=== PATIENT | male | born 1965 | race Caucasian/White ===

== ENCOUNTER 2022-11-30 08:36 | Outpatient (REF) | payer OTHER, SELFPAY ==
--- NOTE | ~2022-11-30 | XR_ITS ---
EXAMINATION: XR SHOULDER, RIGHT XR SHOULDER, LEFT CLINICAL INFORMATION: M25.519 - Pain in unspecified shoulder COMPARISON: MRI left shoulder 03/06/2007 TECHNIQUE: Each shoulder is imaged in 4 views. There are a total of 8 views. FINDINGS: Right: No fracture, dislocation, destructive process. Normal bony mineralization. There are osteoarthritic changes glenohumeral joint with joint narrowing and mild subchondral sclerosis. No visible articular chondrocalcinosis. Bulky osteophyte is present at the inferomedial humeral head. There is some laxity of the humeral head with humeral head seated between the mid and lower glenoid fossa. There is punctate calcific tendinosis in the superior rotator cuff. There are degenerative changes acromioclavicular joint. The acromioclavicular alignment is normal. Left: No fracture, dislocation, destructive process. Normal bony mineralization. There are prominent osteoarthritic changes glenohumeral joint with joint narrowing and mild subchondral sclerosis. Bulky osteophyte is present at the inferomedial humeral head. There are small geodes at the glenohumeral joint. No visible articular cartilage chondrocalcinosis. No definite rotator cuff calcifications. The acromioclavicular alignment is normal. There are degenerative changes acromioclavicular joint. XR/XR shoulder RT min 2V IMPRESSION: Right: -Osteoarthritis glenohumeral joint with borderline inferior subluxation. -Degenerative changes acromioclavicular joint. -Punctate calcific tendinosis in superior rotator cuff. -No visible chondrocalcinosis articular cartilage. Left: -Prominent osteoarthritis glenohumeral joint. No visible chondrocalcinosis articular cartilage. -Degenerative changes acromioclavicular joint.
--- NOTE | ~2022-11-30 | XR_ITS ---
EXAMINATION: XR SHOULDER, RIGHT XR SHOULDER, LEFT CLINICAL INFORMATION: M25.519 - Pain in unspecified shoulder COMPARISON: MRI left shoulder 03/06/2007 TECHNIQUE: Each shoulder is imaged in 4 views. There are a total of 8 views. FINDINGS: Right: No fracture, dislocation, destructive process. Normal bony mineralization. There are osteoarthritic changes glenohumeral joint with joint narrowing and mild subchondral sclerosis. No visible articular chondrocalcinosis. Bulky osteophyte is present at the inferomedial humeral head. There is some laxity of the humeral head with humeral head seated between the mid and lower glenoid fossa. There is punctate calcific tendinosis in the superior rotator cuff. There are degenerative changes acromioclavicular joint. The acromioclavicular alignment is normal. Left: No fracture, dislocation, destructive process. Normal bony mineralization. There are prominent osteoarthritic changes glenohumeral joint with joint narrowing and mild subchondral sclerosis. Bulky osteophyte is present at the inferomedial humeral head. There are small geodes at the glenohumeral joint. No visible articular cartilage chondrocalcinosis. No definite rotator cuff calcifications. The acromioclavicular alignment is normal. There are degenerative changes acromioclavicular joint. XR/XR shoulder LT min 2V IMPRESSION: Right: -Osteoarthritis glenohumeral joint with borderline inferior subluxation. -Degenerative changes acromioclavicular joint. -Punctate calcific tendinosis in superior rotator cuff. -No visible chondrocalcinosis articular cartilage. Left: -Prominent osteoarthritis glenohumeral joint. No visible chondrocalcinosis articular cartilage. -Degenerative changes acromioclavicular joint.
[2022-11-30 08:50] LABS: MANUAL DIFF FLAG NO
[2022-11-30 08:56] LABS: Basophils Percent Auto 0.8 % (0-2); Eosinophils Absolute Auto 0.4 X10*3/uL (0.0-0.4); Eosinophils Percent Auto 7.5 % (0-4); Hematocrit 44.2 % (42.0-52.0); Lymphocytes Absolute Auto 2.1 X10*3/uL (1.2-4.9); Lymphocytes Percent Auto 42.5 % (20-40); Mean Corpuscular HGB Conc 33.9 g/dl (31.0-36.0); Mean Corpuscular Hemoglobin 31.8 pg (27.0-33.0); Mean Corpuscular Volume 93.8 fL (80.0-98.0); Mean Platelet Volume 9.5 fL (9.4-12.4); Monocytes Absolute Auto 0.6 X10*3/uL (0.1-1.2); Monocytes Percent Auto 11.3 % (2-11); Neutrophils Absolute Auto 1.9 x10*3/uL (2.0-8.3); Neutrophils Percent Auto 37.9 % (45-73); Platelet Count 237 X10*3/uL (160-400); Red Blood Count 4.71 X10*6/uL (4.60-5.80); Red Cell Distribution Width 13.3 % (11.0-16.0)
[2022-11-30 09:29] LABS: Alanine Aminotransferase 21 U/L (0-40); Albumin Level 4.5 g/dL (3.5-5.0); Alkaline Phosphatase 57 U/L (39-117); Anion Gap 11 (12-20); Aspartate Amino Transferase 18 U/L (5-37); Blood Urea Nitrogen 16 mg/dL (9-16); Calcium 9.9 mg/dL (8.4-10.2); Carbon Dioxide 28 mmol/L (22-29); Chloride 106 mmol/L (96-108); Cholesterol 265 mg/dL; Estimated Glomerular Filt Rate > 60; Glucose Fasting 115 mg/dL (60-99); HDL Cholesterol 72 mg/dL; LDL Cholesterol Calculated 153 mg/dl; Potassium 4.5 mmol/L (3.3-5.1); Sodium 140 mmol/L (135-145); Total Protein 7.3 g/dL (6.5-8.0); Triglycerides 201 mg/dL
== END 2022-11-30 08:37 | disposition home or self-care (01) ==
LOC: HO.LAB 08:36
PROVIDERS: PCP Internal Medicine; Visit Provider Internal Medicine
DX: M25.512 Pain in left shoulder (principal); M25.511 Pain in right shoulder; N28.9 Disorder of kidney and ureter, unspecified; E78.5 Hyperlipidemia, unspecified; D64.9 Anemia, unspecified
CPT/HCPCS: 36415; 73030; 80053; 80061; 85025

== ENCOUNTER 2023-11-30 12:45 | Outpatient (AMB) | payer OTHER, SELFPAY ==
[2023-11-30 12:48] VITALS: BP 132/76; PULSE 87; O2SAT 97; BMI 34.0
--- NOTE | 2023-11-30 12:48 | MHC.PC.OV ---
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 by: Self / Same As Patient Allergies No Known Allergies Allergy (Verified 11/30/23 12:48) Tobacco use date assessed: 11/30/23 Dental Screening Dental Screen Date: 11/30/23 Did you have a dental visit in the last 12 months?: Yes Did you have a dental problem in the last 6 months where you did not have access to dental care?: No Was dental information given to patient?: Patient has dentist HPI Annual Exam HPI Details chronic left shoulder pain [facility] Social History Housing: House Patient Tobacco Use Status: Never used Tobacco e-Cigarette/Vaping Use: Never Used Second Hand Smoke Exposure: No service: No Current occupational status: retired Cognitive needs: No Hearing needs: No Vision needs: No Questionnaire PHQ-9 Over the last 2 weeks, how often have you been bothered by any of the following problems? 1. Little interest or pleasure in doing things: not at all 2. Feeling down, depressed, or hopeless: not at all 3. Trouble falling or staying asleep, or sleeping too much: not at all 4. Feeling tired or having little energy: not at all 5. Poor appetite or overeating: not at all 6. Feeling bad about yourself - or that you are a failure or have let yourself or your family down: not at all 7. Trouble concentrating on things, such as reading the newspaper or watching television: not at all 8. Moving or speaking so slowly that other people could have noticed. Or the opposite - being so fidgety or restless that you have been moving around a lot more than usual: not at all 9. Thoughts that you would be better off or of hurting yourself in some way: not at all Total score: 0 Depression Screening Interpretation: Negative Depression Screening Done: Yes 74363 - PHQ-9 Billing: Yes Source: Developed by Drs. Duncan Zapata, Marilou BMaurice Li and colleagues, with an educational taylor from [employer]. Thrive Questionnaire Date Thrive assessed: 11/30/23 I am a: Patient What is your living situation today?: I have a steady place to live Within the past 12 months, did the food you bought not last and you didn't have the money to get more?: Never true Within the past 12 months, did you worry whether your food would run out before you got money to buy more?: Never true Do you have trouble paying for medicines?: No Do you have trouble getting transportation to medical appointments?: No Do you have trouble paying your heating and electricity bill?: No Do you have trouble taking care of your child, family member or friend?: No Do you have trouble with day-to-day activities such as bathing, preparing meals, shopping, managing finances, etc.?: No Are you currently unemployed and looking for a job?: No Are you interested in more education?: No Please select the resources that you would like help with: None Currently or been in a relationship where the following occur: no concerns reported AUDIT C Alcohol Use Questionnaire (AUDIT-C) 1. How often do you have a drink containing alcohol?: 2-3 times a week 2. How many drinks containing alcohol do you have on a typical day when you are drinking?: 5 or 6 3. How often do you have six or more drinks on one occasion?: Weekly Total Score: 8 SHAI-7 AMB Questionnaire SHAI-7 Date SHAI - 7 assessed: 11/30/23 Feeling nervous, anxious, or on edge: 0 = Not at all Not being able to stop or control worryin = Not at all Worrying too much about different things: 0 = Not at all Trouble relaxin = Not at all Being so restless that it is hard to sit still: 0 = Not at all Becoming easily annoyed or irritable: 0 = Not at all Feeling afraid as if something awful might happen: 0 = Not at all Total SHAI-7 score (0-4 normal; 5-9 mild; 10-14 moderate; 15-21 severe): 0 Source: Developed by Drs. Duncan Zapata, Maurice Gallegos and colleagues, with an educational taylor from [employer]. SHAI-7 Assessment Billing SHAI-7 Assessment Tool: SHAI-7 Assessment 56259 Review of Systems Const Denies chills, Denies fatigue, Denies headache(s) and Denies weight loss Eyes Denies change in vision, Denies diplopia and Denies eye pain ENT Denies vertigo, Denies dizziness, Denies headache(s) and Denies nasal discharge Card Denies chest pain, Denies rapid heart rate and Denies dyspnea on exertion Resp Denies chest congestion, Denies cough, Denies pain with cough and Denies dyspnea on exertion GI Denies abdominal pain, Denies hematochezia and Denies change in bowel habits Musc Denies myalgias, Denies arthralgias and Denies joint swelling Skin/Breast Denies lesions and Denies unusual bruising Neuro Denies vertigo, Denies dizziness, Denies headache(s) and Denies focal weakness Endo Denies fatigue Physical exam (Primary Care) Vital Signs: Last Vital Signs Pulse 87 11/30/23 12:48 BP 132/76 11/30/23 12:48 Pulse Ox 97 11/30/23 12:48 Oxygen Delivery Method Room Air 11/30/23 12:48 BMI result Body Mass Index 34.0 Tobacco/Smoking Status: Tobacco use Status Tobacco use date assessed 11/30/23 11/30/23 12:49 Patient Tobacco Use Status Never used Tobacco 11/30/23 12:49 e-Cigarette/Vaping Use Never Used 11/30/23 12:49 PHQ-9: PHQ-9 Score PHQ-9: Total score 0 11/30/23 12:49 Depression Screening Interpretation: Negative Thrive Assessment: Date of Thrive Assessment Date Thrive assessed 11/30/23 11/30/23 12:49 Currently or been in a relationship where the following occur: no concerns reported Const General: cooperative, healthy appearing and no acute distress Orientation/consciousness: oriented to person, oriented to place and oriented to time HENMT Head: Yes normal to inspection, Yes normocephalic and Yes atraumatic Mouth: Normal oral and palatal mucosa present and tongue normal Throat: Yes posterior oropharynx normal and Yes uvula midline Eyes General: appearance normal, both eyes and all related structures Neck Neck: Yes normal visual inspection, Yes full ROM and Yes no lymphadenopathy Thyroid: Thyroid normal Carotids: normal carotid upstroke Chest Chest palpation & inspection: normal inspection of the chest Resp Effort & Inspection: normal respiratory effort and able to speak in complete sentences Auscultation: clear to auscultation bilaterally Cardio Jugular venous distension: no JVD Palpation: normal PMI Rate: regular rate Rhythm: regular rhythm Heart sounds: S1 normal heart sound present and S2 normal heart sound present GI Inspection: Yes normal to inspection Palpation (GI): Soft to palpation and No hepatosplenomegaly present Auscultation: normal bowel sounds General: Yes no CVA tenderness Back/Spine/Pelvis Back: no CVA tenderness Skin General skin exam: no rashes or lesions noted Neuro General: oriented to person, oriented to place and oriented to time Extrem General: Yes normal to inspection and Yes full ROM Assessment and Plan Assessment & Plan (1) Physical exam: Code(s): Z00.00 - Encounter for general adult medical examination without abnormal findings Plan: labs (2) Shoulder pain: Code(s): M25.519 - Pain in unspecified shoulder Plan: ortho referral Orders: Orders Thyroid Stimulating Hormone Today E03.9 - Hypothyroidism, unspecified Comprehensive [place]. Panel Fast Today N28.9 - Disorder of kidney and ureter, unspecified Lipid Panel Today E78.5 - Hyperlipidemia, unspecified Complete Blood Count Auto Diff Today D64.9 - Anemia, unspecified Referrals Orthopedics Referral M25.519 - Pain in unspecified shoulder Coding Level of Care Code Est Pt Prev Care 40-64y(83664) Diagnoses Physical exam Z00.00 Shoulder pain M25.519 Additional Codes SHAI-7 Assessment Billing - SHAI-7 Assessment Tool: SHAI-7 Assessment 54099 ([id number])
== END 2023-11-30 13:14 | disposition home or self-care (01) ==
PROVIDERS: Visit Provider Internal Medicine
DX: Z00.00 Encounter for general adult medical examination without abnormal findings (principal); M25.519 Pain in unspecified shoulder
CPT/HCPCS: 99396

== ENCOUNTER 2023-12-12 14:57 | Outpatient (AMB) | payer OTHER, SELFPAY ==
[2023-12-12 14:58] VITALS: BMI 34.0
--- NOTE | 2023-12-12 14:58 | A.OFFVIS_ITS ---
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 The patient describes his pain as sharp in nature. His pain and weakness have gotten worse over the last few years in spite of continued non operative treatments. He has had difficulty lifting his left hand above shoulder height. He has done physical therapy exercises which aggravated his pain. Has also tried Tylenol and anti-inflammatory medicines which gave him minimal relief. Allergies No Known Allergies Allergy (Verified 12/12/23 15:03) Medication List - Last Reconciled 12/12/23 by Jun Mata MD No Known Home Meds [facility] Social History Housing: House Patient Tobacco Use Status: Never used Tobacco e-Cigarette/Vaping Use: Never Used Second Hand Smoke Exposure: No service: No Current occupational status: retired Cognitive needs: No Hearing needs: No Vision needs: No Physical Exam Vital Signs: BMI result Body Mass Index 34.0 Const Other: Well-nourished well-developed very friendly male awake alert and oriented x3 in no acute distress Extrem Other: Bilateral upper extremity examination shows good capillary refill, no skin lesions noted, normal sensation light touch Left shoulder examination shows decreased range of motion when compared to his right shoulder, 4+ out of 5 strength with supraspinatus testing, positive impingement signs, tenderness over his acromioclavicular joint, no instability Results Reviewed Results Reviewed: X-rays of the patient's left shoulder show severe acromioclavicular joint narrowing, moderate glenohumeral joint degenerative changes, a type 2 acromion, no acute bony abnormalities Assessment & Plan Assessment & Plan (1) Left shoulder pain: Code(s): M25.512 - Pain in left shoulder Plan Mr. Patel presents with progressively worsening left shoulder pain and weakness due to impingement syndrome, acromioclavicular joint arthritis and possible full-thickness rotator cuff tearing. Thus, I will send the patient for an MRI of his left shoulder for further evaluation of his rotator cuff tendons. I will see him back once the MRI is completed to discuss the findings and treatment options. Feel free to call me at any time should questions regarding his orthopedic management arise. Thank you very much for asking me to see this very friendly gentleman. I spent 22 minutes in reviewing the patient's records and imaging studies, seeing the patient and documenting in the medical record. Orders: Orders MR shoulder LT wo con 12/12/23 M25.512 - Pain in left shoulder Coding Level of Care Code New Pt Level 2 (85801) Diagnoses Left shoulder pain M25.512
== END 2023-12-12 15:19 | disposition home or self-care (01) ==
PROVIDERS: PCP Internal Medicine; Visit Provider Orthopaedic Surgery
DX: M25.512 Pain in left shoulder (principal)
CPT/HCPCS: 99202

== ENCOUNTER → 2023-12-12 14:57 | Outpatient (BNVA) | payer OTHER, SELFPAY | PROVIDERS: PCP Internal Medicine; Visit Provider Orthopaedic Surgery ==

== ENCOUNTER 2023-12-27 13:54 | Outpatient (AMB) | payer OTHER, SELFPAY ==
--- NOTE | 2023-12-27 14:01 | A.OFFVIS_ITS ---
Intake Vital Signs 12/27/23 14:09 Height 5 ft 9 in Weight 233 lb BMI 34.4 BP 149/83 H Blood Pressure Location Rt brachial Position Sitting Pulse 68 Intake Visit Reasons: Hemorrhoids Intake Note: This patient presents for an assessment for hemorrhoids. Patient c/o; reports no rectal pain, reports no rectal bleeding, reports no constipation, occasional straining with bowel movements, reports had a colonoscopy 7 years ago. 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 He had a colonoscopy 7 years ago. At that time, he was told that he had large hemorrhoids and was referred to be. However, he said that he forgot all about it. He says he knows he has hemorrhoids but denies any problems with it. He says that he is hemorrhoids do not bother him at all. He denies any pain, swelling or bleeding. [facility] Medical History Internal and external hemorrhoids without complication Family History Other Cancer Social History Housing: House Patient Tobacco Use Status: Never used Tobacco e-Cigarette/Vaping Use: Never Used Second Hand Smoke Exposure: No service: No Current occupational status: retired Cognitive needs: No Hearing needs: No Vision needs: No Review of Systems Const Denies chills and Denies fever(s) Card Denies chest pain, Denies dyspnea and Denies dyspnea on exertion Resp Denies cough, Denies dyspnea and Denies dyspnea on exertion GI Denies hematochezia and Denies change in bowel habits Denies hematuria and Denies difficulty urinating Musc Denies back pain and Denies limited range of motion Neuro Denies focal weakness and Denies convulsions Psych Denies depression and Denies mood swings Physical Exam Vital Signs: Last Vital Signs Pulse 68 12/27/23 14:09 BP 149/83 H 12/27/23 14:09 BMI result Body Mass Index 34.4 Const General: comfortable and no acute distress Orientation/consciousness: patient oriented x3 Neck Neck: Yes no lymphadenopathy Resp Auscultation: clear to auscultation bilaterally Cardio Rhythm: regular rhythm GI Other: Large hemorrhoids, external, seen on the left and the right side Palpation (GI): Soft to palpation, nontender and no guarding Neuro General: patient oriented x3 Office Procedures Anoscopy He was in vianney-knife position. The anoscope was gently inserted. A full examination of the anal canal was done. He did have bulky internal and external hemorrhoidal columns on the left and the right side. There were no other lesions. There was no fissure. There was no induration on digital exam. There was no blood. [id number] Assessment & Plan Assessment & Plan (1) Internal and external hemorrhoids without complication: Code(s): K64.4 - Residual hemorrhoidal skin tags; K64.8 - Other hemorrhoids Plan: Examination including anoscopy reveals large hemorrhoidal columns, internal external on the left and right side. He otherwise says that these do not bother him at all. He denies any pain, swelling or bleeding. He says that he does not want any surgical intervention for these at this time. He denies being constipated I did tell him that if he develops symptoms and he wants to be re-evaluated, he can follow-up in the office down the line. Coding Level of Care Code New Pt Level 3 (77464) Diagnoses Internal and external hemorrhoids without complication K64.4; K64.8 CPT Codes Details - CPT: 39692-[id number] ([id number])
[2023-12-27 14:09] VITALS: BP 149/83; PULSE 68; BMI 34.4
== END 2023-12-27 14:23 | disposition home or self-care (01) ==
PROVIDERS: PCP Internal Medicine; Visit Provider Surgery
DX: K64.4 Residual hemorrhoidal skin tags (principal); K64.8 Other hemorrhoids
CPT/HCPCS: 46600; 99203

== ENCOUNTER → 2023-12-27 13:54 | Outpatient (BNVA) | payer OTHER, SELFPAY | PROVIDERS: PCP Internal Medicine; Visit Provider Surgery | DX: K64.4 Residual hemorrhoidal skin tags (principal); K64.8 Other hemorrhoids | CPT/HCPCS: 46600 ==

== ENCOUNTER 2023-12-28 19:57 | Outpatient (REF) | payer OTHER, SELFPAY ==
--- NOTE | ~2023-12-28 | MR_ITS ---
EXAMINATION: MR SHOULDER WITHOUT CONTRAST, LEFT CLINICAL INFORMATION: Shoulder pain. COMPARISON: None available. TECHNIQUE: MRI of the left shoulder without contrast was performed on a high-field scanner. FINDINGS: ROTATOR CUFF: Moderate supraspinatus tendinosis, with bursal surface fraying/thinning in the distal anterior/middle fibers. No full-thickness tear is seen. Infraspinatus, teres minor is intact. Mild subscapularis tendinosis, with thinning/partial tearing of the distal tendon measuring approximately 1.7 cm ML. No muscle atrophy or fatty infiltration. BICEPS: Mild-moderate tendinosis of the proximal intra-articular biceps tendon. CORACOACROMIAL ARCH: The undersurface of the acromion is mildly curved with no subacromial spur. Moderate acromioclavicular arthritis. Mild subacromial-subdeltoid bursitis. LABRUM/CAPSULE: Diffuse labral degenerative tearing, with abnormal signal, ill-definition, irregularity. Severe glenohumeral joint arthritis, GLENOHUMERAL JOINT/MARROW: Severe glenohumeral joint arthritis, characterized by marked joint space loss, large osteophytes, extensive full-thickness cartilage loss, subchondral cysts and edema, bony remodeling. Small effusion with synovitis, debris/loose bodies. MR/MR shoulder LT wo con IMPRESSION: 1. Moderate supraspinatus tendinosis, with bursal surface fraying/tearing in the distal anterior/middle fibers. 2. Mild subscapularis tendinosis with thinning/partial tearing distally. 3. Mild-moderate proximal biceps tendinosis. 4. Diffuse labral degenerative tearing. 5. Severe glenohumeral joint arthritis. Small effusion with synovitis, debris/loose bodies. 6. Moderate acromioclavicular arthritis. Mild subacromial-subdeltoid bursitis.
== END 2023-12-28 19:58 | disposition home or self-care (01) ==
LOC: HO.MRI 19:57
PROVIDERS: PCP Internal Medicine; Visit Provider Orthopaedic Surgery
DX: M25.512 Pain in left shoulder (principal)
CPT/HCPCS: 73221

== ENCOUNTER 2024-01-16 08:38 | Outpatient (AMB) | payer OTHER, SELFPAY ==
[2024-01-16 08:40] VITALS: BMI 34.4
--- NOTE | 2024-01-16 08:40 | MHC.OFFVIS ---
Intake Vital Signs 01/16/24 08:40 Height 5 ft 9 in Weight 233 lb BMI 34.4 Intake Visit Reasons: ov- MRI Shoulder LT review Intake Note: Jose G is a 58 year old male who presents for a MRI review of his Left shoulder. Patient reports his shoulder is feeling better then usual. He still having trouble sleeping due to the discomfort. He also doing some shoulder exercises that he found on line, that seem to be helping. He denies any weakness in his shoulder. He continues to exercise as much as possible. Allergies No Known Allergies Allergy (Verified 01/16/24 08:43) Medication List - Last Reconciled 01/17/24 by Jun Mata MD No Known Home Meds [facility] Medical History Internal and external hemorrhoids without complication Family History Other Cancer Social History Housing: House Patient Tobacco Use Status: Never used Tobacco e-Cigarette/Vaping Use: Never Used Second Hand Smoke Exposure: No service: No Current occupational status: retired Cognitive needs: No Hearing needs: No Vision needs: No Physical Exam Vital Signs: BMI result Body Mass Index 34.4 Const Other: Well-nourished well-developed very friendly male awake alert and oriented x3 in no acute distress Extrem Other: Bilateral upper extremity examination shows good capillary refill, no skin lesions noted, normal sensation light touch Left shoulder examination shows slightly decreased range of motion when compared to his right shoulder, mild crepitus with range of motion, 5/5 strength with supraspinatus testing, positive impingement signs, tenderness over his acromioclavicular joint Results Reviewed Results Reviewed: MRI of the patient's left shoulder show severe acromioclavicular joint narrowing, a type 2 acromion, moderate glenohumeral joint degenerative changes, no acute bony abnormalities Assessment & Plan Assessment & Plan (1) Left shoulder pain: Code(s): M25.512 - Pain in left shoulder Plan Mr. Patel presents with left shoulder pain and stiffness due to impingement syndrome, acromioclavicular joint arthritis, glenohumeral joint arthritis and adhesive capsulitis. I had a lengthy discussion with the patient regarding the treatment options. At this point the patient's symptoms are tolerable to him. Will continue with his exercise program. Will follow up with me on an as-needed basis should his symptoms worsen in any way. Feel free to call me at any time should questions regarding his orthopedic management arise. I spent 22 minutes in reviewing the patient's records and imaging studies, seeing the patient and documenting in the medical record. Coding Level of Care Code Est Pt Level 2 (61053) Diagnoses Left shoulder pain M25.512
== END 2024-01-16 09:10 | disposition home or self-care (01) ==
PROVIDERS: PCP Internal Medicine; Visit Provider Orthopaedic Surgery
DX: M75.42 Impingement syndrome of left shoulder (principal); M25.512 Pain in left shoulder; M19.011 Primary osteoarthritis, right shoulder
CPT/HCPCS: 99213

== ENCOUNTER → 2024-01-16 08:38 | Outpatient (BNVA) | payer OTHER, SELFPAY | PROVIDERS: PCP Internal Medicine; Visit Provider Orthopaedic Surgery ==

== ENCOUNTER 2024-12-12 12:56 | Outpatient (AMB) | payer BC, SELFPAY ==
--- NOTE | 2024-12-12 13:00 | MHC.PC.OV ---
Vital Signs 12/12/24 13:05 Height 5 ft 9 in Weight 238 lb 6 oz BMI 35.2 BP 130/74 Blood Pressure Location Lt brachial Position Sitting Pulse 60 Pulse Source Pulse Oximeter Temp 96.6 F L Temp Source Skin Pulse Oximetry (%) 96 Oxygen Delivery Method Room Air Intake Visit Reasons: PE Intake Note: Patient is here today for a physical. Pt decline flu shot today Band Edger Required: No Kiln Stoker: Not Required per policy Accompanied by: Self / Same As Patient Allergies No Known Allergies Allergy (Verified 12/12/24 13:04) Medication List - Last Reconciled 12/12/24 by Derrick Bansal MD valacyclovir 1,000 mg PO BID Tobacco use date assessed: 12/12/24 Dental Screening Dental Screen Date: 12/12/24 Did you have a dental visit in the last 12 months?: Yes Did you have a dental problem in the last 6 months where you did not have access to dental care?: No Was dental information given to patient?: Patient has dentist HPI PE HPI Details DANG on CPAP; doing well PFSH Medical History (Updated 12/12/24 @ 13:29 by Derrick Bansal MD) Internal and external hemorrhoids without complication Surgical History (Updated 12/12/24 @ 13:07 by DIANA Granados) No pertinent past surgical history Family History (Updated 12/12/24 @ 13:00 by DIANA Granados) Other Cancer Social History Housing: House Patient Tobacco Use Status: Never used Tobacco e-Cigarette/Vaping Use: Never Used Second Hand Smoke Exposure: No service: No Current occupational status: retired Cognitive needs: No Hearing needs: No Vision needs: No Questionnaire PHQ-9 Over the last 2 weeks, how often have you been bothered by any of the following problems? 1. Little interest or pleasure in doing things: not at all 2. Feeling down, depressed, or hopeless: not at all 3. Trouble falling or staying asleep, or sleeping too much: not at all 4. Feeling tired or having little energy: not at all 5. Poor appetite or overeating: not at all 6. Feeling bad about yourself - or that you are a failure or have let yourself or your family down: not at all 7. Trouble concentrating on things, such as reading the newspaper or watching television: not at all 8. Moving or speaking so slowly that other people could have noticed. Or the opposite - being so fidgety or restless that you have been moving around a lot more than usual: not at all 9. Thoughts that you would be better off or of hurting yourself in some way: not at all Total score: 0 Depression Screening Interpretation: Negative Depression Screening Done: Yes Source: Developed by Drs. Duncan Zapata, Marilou Meza, Maurice Laboy and colleagues, with an educational taylor from [employer]. Thrive Questionnaire Date Thrive assessed: 12/11/24 I am a: Patient What is your living situation today?: I have a steady place to live Within the past 12 months, did the food you bought not last and you didn't have the money to get more?: Never true Within the past 12 months, did you worry whether your food would run out before you got money to buy more?: Never true Do you have trouble paying for medicines?: No Do you have trouble getting transportation to medical appointments?: No Do you have trouble paying your heating and electricity bill?: No Do you have trouble taking care of your child, family member or friend?: No Do you have trouble with day-to-day activities such as bathing, preparing meals, shopping, managing finances, etc.?: No Are you currently unemployed and looking for a job?: No Are you interested in more education?: No Please select the resources that you would like help with: None Currently or been in a relationship where the following occur: No concerns reported THRIVE Score: 0 AUDIT C Alcohol Use Questionnaire (AUDIT-C) 1. How often do you have a drink containing alcohol?: 2-4 times a month 2. How many drinks containing alcohol do you have on a typical day when you are drinking?: 5 or 6 3. How often do you have six or more drinks on one occasion?: Weekly Total Score: 7 SHAI-7 AMB Questionnaire SHAI-7 Date SHAI - 7 assessed: 12/12/24 Feeling nervous, anxious, or on edge: 0 = Not at all Not being able to stop or control worryin = Not at all Worrying too much about different things: 0 = Not at all Trouble relaxin = Not at all Being so restless that it is hard to sit still: 0 = Not at all Becoming easily annoyed or irritable: 0 = Not at all Feeling afraid as if something awful might happen: 0 = Not at all Total SHAI-7 score (0-4 normal; 5-9 mild; 10-14 moderate; 15-21 severe): 0 Source: Developed by Drs. Duncan Zapata, Marilou Meza, Maurice Laboy and colleagues, with an educational taylor from [employer]. Review of Systems Const Denies chills, Denies fatigue, Denies headache(s) and Denies weight loss Eyes Denies change in vision, Denies diplopia and Denies eye pain ENT Denies vertigo, Denies dizziness, Denies headache(s) and Denies nasal discharge Card Denies chest pain, Denies rapid heart rate and Denies dyspnea on exertion Resp Denies chest congestion, Denies cough, Denies pain with cough and Denies dyspnea on exertion GI Denies abdominal pain, Denies hematochezia and Denies change in bowel habits Musc Denies myalgias, Denies arthralgias and Denies joint swelling Skin/Breast Denies lesions and Denies unusual bruising Neuro Denies vertigo, Denies dizziness, Denies headache(s) and Denies focal weakness Endo Denies fatigue Physical exam (Primary Care) Vital Signs: Last Vital Signs Temp 96.6 F L 12/12/24 13:05 Pulse 60 12/12/24 13:05 BP 130/74 12/12/24 13:05 Pulse Ox 96 12/12/24 13:05 Oxygen Delivery Method Room Air 12/12/24 13:05 BMI result Body Mass Index 35.2 Tobacco/Smoking Status: Tobacco use Status Tobacco use date assessed 12/12/24 12/12/24 13:06 Patient Tobacco Use Status Never used Tobacco 12/12/24 13:01 e-Cigarette/Vaping Use Never Used 12/12/24 13:01 PHQ-9: PHQ-9 Score PHQ-9: Total score 0 12/12/24 13:01 Depression Screening Interpretation: Negative Thrive Assessment: Date of Thrive Assessment Date Thrive assessed 12/11/24 12/12/24 13:01 Currently or been in a relationship where the following occur: No concerns reported Const General: cooperative, healthy appearing and no acute distress Orientation/consciousness: oriented to person, oriented to place and oriented to time HENMT Head: Yes normal to inspection, Yes normocephalic and Yes atraumatic Mouth: Normal oral and palatal mucosa present and tongue normal Throat: Yes posterior oropharynx normal and Yes uvula midline Eyes General: appearance normal, both eyes and all related structures Neck Neck: Yes normal visual inspection, Yes full ROM and Yes no lymphadenopathy Thyroid: Thyroid normal Carotids: normal carotid upstroke Chest Chest palpation & inspection: normal inspection of the chest Resp Effort & Inspection: normal respiratory effort and able to speak in complete sentences Auscultation: clear to auscultation bilaterally Cardio Jugular venous distension: no JVD Palpation: normal PMI Rate: regular rate Rhythm: regular rhythm Heart sounds: S1 normal heart sound present and S2 normal heart sound present GI Inspection: Yes normal to inspection Palpation (GI): Soft to palpation and No hepatosplenomegaly present Auscultation: normal bowel sounds General: Yes no CVA tenderness Back/Spine/Pelvis Back: no CVA tenderness Skin General skin exam: no rashes or lesions noted Neuro General: oriented to person, oriented to place and oriented to time Extrem General: Yes normal to inspection and Yes full ROM Coding Level of Care Code Est Pt Prev Care 40-64y(71772) Diagnoses Physical exam Z00.00 Obstructive sleep apnea G47.33 Assessment & Plan Assessment & Plan (1) Physical exam: Code(s): Z00.00 - Encounter for general adult medical examination without abnormal findings Category: Medical Plan: do labs (2) Obstructive sleep apnea: Code(s): G47.33 - Obstructive sleep apnea (adult) (pediatric) Category: Medical Plan: stable; same rx Orders: Orders Prostate Specific Antigen Scr Today Z00.00 - Encounter for general adult medical examination without abnormal findings Lipid Panel Today Z13.220 - Encounter for screening for lipoid disorders Thyroid Stimulating Hormone Today Z13.29 - Encounter for screening for other suspected endocrine disorder Complete Blood Count Auto Diff Today Z13.0 - Encounter for screening for diseases of the blood and blood-forming organs and certain disorders involving the immune mechanism Comprehensive [place]. Panel Fast Today Z13.9 - Encounter for screening, unspecified
[2024-12-12 13:05] VITALS: BP 130/74; PULSE 60; TEMP 35.9; O2SAT 96; BMI 35.2
== END 2024-12-12 13:24 | disposition home or self-care (01) ==
PROVIDERS: PCP Internal Medicine; Visit Provider Internal Medicine
DX: Z00.00 Encounter for general adult medical examination without abnormal findings (principal); G47.33 Obstructive sleep apnea (adult) (pediatric)

== ENCOUNTER 2025-09-03 10:20 | Outpatient (AMB) | payer BC, SELFPAY ==
[2025-09-03 10:25] VITALS: BP 142/88; PULSE 69; TEMP 36.3; O2SAT 98; BMI 34.9
--- NOTE | 2025-09-03 10:25 | MHC.PC.OV ---
Vital Signs 09/03/25 10:25 Height 5 ft 9 in Weight 236 lb 4 oz BMI 34.9 BP 142/88 H Blood Pressure Location Lt brachial Position Sitting Pulse 69 Pulse Source Pulse Oximeter Temp 97.3 F Temp Source Temporal Artery Scan Pulse Oximetry (%) 98 Oxygen Delivery Method Room Air Intake Visit Reasons: AMARILYS Dr. Bansal/left ankle swelling Allergies No Known Allergies Allergy (Verified 09/03/25 10:30) Tobacco use date assessed: 09/03/25 Dental Screening Dental Screen Date: 09/03/25 Did you have a dental visit in the last 12 months?: Yes Did you have a dental problem in the last 6 months where you did not have access to dental care?: No Was dental information given to patient?: Patient has dentist HPI HPI Comments History of Present Illness Details The patient is a 60-year-old male presenting with left ankle swelling and pain, suspected to be gout. The patient reports that the ankle swelling began suddenly on a Monday morning, initially feeling as if the covers were too tight around his foot. By Monday, the swelling had increased significantly, rendering him unable to walk on it. This is the second occurrence within a year, with the previous episode leading to an urgent care visit where an infection was suspected and antibiotics were prescribed. The patient has been managing the current episode with Aleve, which he takes to alleviate the pain and enable sleep. He consumes red meat and beer, which are known to exacerbate gout symptoms, and has been advised to reduce alcohol intake, particularly beer. The patient has a history of sleep apnea, for which he uses a CPAP machine regularly. He reports significant improvement in his symptoms since starting CPAP therapy. The patient has a history of hypertension, with a current blood pressure reading of 142/88 mmHg. Lifestyle modifications, including dietary changes, have been discussed to manage his blood pressure. The patient has a history of herpes simplex virus infection, with rare outbreaks managed by keeping medication at home. The patient has osteoarthritis in his right shoulder, causing persistent pain and limited range of motion. He has been advised to incorporate stretching exercises into his routine to alleviate symptoms. [facility] Medical History Internal and external hemorrhoids without complication Surgical History No pertinent past surgical history Family History Other Cancer Social History Housing: House Patient Tobacco Use Status: Never used Tobacco e-Cigarette/Vaping Use: Never Used Second Hand Smoke Exposure: No service: No Current occupational status: retired Cognitive needs: No Hearing needs: No Vision needs: No Questionnaire PHQ-9 Over the last 2 weeks, how often have you been bothered by any of the following problems? 1. Little interest or pleasure in doing things: not at all 2. Feeling down, depressed, or hopeless: not at all 3. Trouble falling or staying asleep, or sleeping too much: not at all 4. Feeling tired or having little energy: not at all 5. Poor appetite or overeating: not at all 6. Feeling bad about yourself - or that you are a failure or have let yourself or your family down: not at all 7. Trouble concentrating on things, such as reading the newspaper or watching television: not at all 8. Moving or speaking so slowly that other people could have noticed. Or the opposite - being so fidgety or restless that you have been moving around a lot more than usual: not at all 9. Thoughts that you would be better off or of hurting yourself in some way: not at all Total score: 0 Depression Screening Interpretation: Negative Depression Screening Done: Yes Source: Developed by Drs. Duncan Zapata, Marilou Meza, Maurice Laboy and colleagues, with an educational taylor from [email or web address]. Thrive Questionnaire Date Thrive assessed: 12/11/24 I am a: Patient What is your living situation today?: I have a steady place to live Within the past 12 months, did the food you bought not last and you didn't have the money to get more?: Never true Within the past 12 months, did you worry whether your food would run out before you got money to buy more?: Never true Do you have trouble paying for medicines?: No Do you have trouble getting transportation to medical appointments?: No Do you have trouble paying your heating and electricity bill?: No Do you have trouble taking care of your child, family member or friend?: No Do you have trouble with day-to-day activities such as bathing, preparing meals, shopping, managing finances, etc.?: No Are you currently unemployed and looking for a job?: No Are you interested in more education?: No Please select the resources that you would like help with: None Currently or been in a relationship where the following occur: No concerns reported THRIVE Score: 0 AUDIT C Alcohol Use Questionnaire (AUDIT-C) 1. How often do you have a drink containing alcohol?: 2-4 times a month 2. How many drinks containing alcohol do you have on a typical day when you are drinking?: 5 or 6 3. How often do you have six or more drinks on one occasion?: Weekly Total Score: 7 SHAI-7 AMB Questionnaire SHAI-7 Date SHAI - 7 assessed: 12/12/24 Feeling nervous, anxious, or on edge: 0 = Not at all Not being able to stop or control worryin = Not at all Worrying too much about different things: 0 = Not at all Trouble relaxin = Not at all Being so restless that it is hard to sit still: 0 = Not at all Becoming easily annoyed or irritable: 0 = Not at all Feeling afraid as if something awful might happen: 0 = Not at all Total SHAI-7 score (0-4 normal; 5-9 mild; 10-14 moderate; 15-21 severe): 0 Source: Developed by Drs. Duncan Zapata, Marilou Meza, Maurice Laboy and colleagues, with an educational taylor from [employer] Review of Systems Const Details: Positives besides what was mentioned in HPI are in BOLD Constitutional: No Weight Change, No Fever, No Chills, No Night Sweats, No Fatigue, No Malaise ENT/Mouth: No Hearing Changes, No Ear Pain, No Nasal Congestion, No Sinus Pain, No Hoarseness, No sore throat, No Rhinorrhea, No Swallowing Difficulty Eyes: No Eye Pain, No Swelling, No Redness, No Foreign Body, No Discharge, No Vision Changes Cardiovascular: No Chest Pain, No SOB, No PND, No Dyspnea on Exertion, No Orthopnea, No Claudication, No Edema, No Palpitations Respiratory: No Cough, No Sputum, No Wheezing, No Smoke Exposure, No Dyspnea Gastrointestinal: No Nausea, No Vomiting, No Diarrhea, No Constipation, No Pain, No Heartburn, No Anorexia, No Dysphagia, No Hematochezia, No Melena, No Flatulence, No Jaundice Genitourinary: No Dysmenorrhea, No DUB, No Dyspareunia, No Dysuria, No Urinary Frequency, No Hematuria, No Urinary Incontinence, No Urgency, No Flank Pain, No Urinary Flow Changes, No Hesitancy Musculoskeletal: No Arthralgias, No Myalgias, No Joint Swelling, No Joint Stiffness, No Back Pain, No Neck Pain, No Injury History Skin: No Skin Lesions, No Pruritis, No Hair Changes, No Breast/Skin Changes, No Nipple Discharge Neuro: No Weakness, No Numbness, No Paresthesias, No Loss of Consciousness, No Syncope, No Dizziness, No Headache, No Coordination Changes, No Recent Falls Psych: No Anxiety/Panic, No Depression, No Insomnia, No Personality Changes, No Delusions, No Rumination, No SI/HI/AH/VH, No Social Issues, No Memory Changes, No Violence/Abuse Hx., No Eating Concerns Heme/Lymph: No Bruising, No Bleeding, No Transfusions History, No Lymphadenopathy Endocrine: No Polyuria, No Polydipsia, No Temperature Intolerance Physical exam (Primary Care) Vital Signs: Last Vital Signs Temp 97.3 F 09/03/25 10:25 Pulse 69 09/03/25 10:25 BP 142/88 H 09/03/25 10:25 Pulse Ox 98 09/03/25 10:25 Oxygen Delivery Method Room Air 09/03/25 10:25 BMI result Body Mass Index 34.9 Tobacco/Smoking Status: Tobacco use Status Tobacco use date assessed 09/03/25 09/03/25 10:31 Patient Tobacco Use Status Never used Tobacco 09/03/25 10:31 e-Cigarette/Vaping Use Never Used 09/03/25 10:31 PHQ-9: PHQ-9 Score PHQ-9: Total score 0 09/03/25 10:31 Depression Screening Interpretation: Negative Thrive Assessment: Date of Thrive Assessment Date Thrive assessed 12/11/24 09/03/25 10:31 Currently or been in a relationship where the following occur: No concerns reported Const Other: Pertinent findings are in BOLD GENERAL APPEARANCE NAD, activity normal for age, well developed/ well nourished, no cyanosis, pallor, or diaphoresis. EYES lids/conjunctiva normal. EARS/NOSE/THROAT Mucous membranes moist, nares normal, lips/teeth normal uvula midline without oral pharyngeal erythema, exudate or swelling TMs normal bilaterally. No lymphangitis/lymphedema. HEAD/NECK normocephalic atraumatic, no facial trauma, neck is supple. RESPIRATORY respiratory effort normal, speaks in full sentences, no tripod position, no accessory muscle use. Lungs clear to auscultation without rhonchi, wheezes, rales CARDIAC Regular rate and rhythm, no edema. ABDOMINAL Soft, ND/NT. No evidence of fluid wave. No pulsatile masses on exam, rebound tenderness, Hewitt sign or pain over Mcburney's point. MUSCLES/EXTREMITIES No abnormal range of motion, no swelling. SKIN Warm, pink and dry. No rashes, dermatoses, petechiae or lesions. NEUROLOGICAL Speech is clear and appropriate. Normal level of consciousness. Gait and coordination are normal. 5/5 strength in all extremities. PSYCH Normal mood and affect. Judgement/competence is appropriate Coding Level of Care Code Est Pt Level 4 (54432) Est Pt Prev Care 40-64y(53495) Diagnoses Healthcare maintenance Z00.00 Ankle swelling M25.473 Sleep apnea G47.30 Herpes B00.9 Osteoarthritis M19.90 Hypertension I10 Time Spent (min) 40 Assessment & Plan Assessment & Plan (1) Healthcare maintenance: Code(s): Z00.00 - Encounter for general adult medical examination without abnormal findings Category: Medical Plan: CBC, CMP, Lipid panel, A1C, TSH w T4, vit D. Ordered today. Shingles 2 doses when >50 yo. Got the first dose. Will check with retail pharmacy about second dose. COVID: two doses. One dose. Celined the rest. Pneumococcal: 19-64. Check with retail pharmacy. Flu vaccine: Declined. Tdap: due at 2026. Colonoscopy: 45-75. due in 2018. AAA: 65 -75. NI. CT lun - 80. NI. PSA: 50 -70 every two years. Ordered. HIV: Ordered. HBV: Ordered. HCV: Ordered. (2) Ankle swelling: Code(s): M25.473 - Effusion, unspecified ankle Category: Medical Plan: - Continue Aleve for pain management. - Reduce alcohol intake, particularly beer, to prevent future attacks. . - Blood work to include uric acid levels to confirm diagnosis. - Prescribed antibiotics for a week in case this was septic arthritis. (3) Sleep apnea: Code(s): G47.30 - Sleep apnea, unspecified Category: Medical Plan: Cpap. Continue. Sleep medicine referral. (4) Herpes: Code(s): B00.9 - Herpesviral infection, unspecified Category: Medical Plan: - Maintain antiviral medication at home for outbreak management. (5) Osteoarthritis: Code(s): M19.90 - Unspecified osteoarthritis, unspecified site Category: Medical Plan: - Incorporate stretching exercises to improve range of motion and reduce pain. (6) Hypertension: Code(s): I10 - Essential (primary) hypertension Category: Medical Plan: - Monitor blood pressure regularly. - Implement lifestyle modifications including dietary changes and exercise. - Consider medication if blood pressure remains elevated at next visit. Orders: Orders Complete Blood Count Auto Diff Today Z00.00 - Encounter for general adult medical examination without abnormal findings Comprehensive Met. Panel Today Z00.00 - Encounter for general adult medical examination without abnormal findings Hepatitis B Core Antibody Today Z00.00 - Encounter for general adult medical examination without abnormal findings Hepatitis B Surface Antibody Today Z00.00 - Encounter for general adult medical examination without abnormal findings Hemoglobin A1c Today Z00.00 - Encounter for general adult medical examination without abnormal findings TSH reflex Free T4 Today Z00.00 - Encounter for general adult medical examination without abnormal findings Vitamin D 25-OH (D2 and D3) Today Z00.00 - Encounter for general adult medical examination without abnormal findings Hepatitis B Surface Antigen Today Z00.00 - Encounter for general adult medical examination without abnormal findings Hepatitis C Antibody Reflex Today Z00.00 - Encounter for general adult medical examination without abnormal findings HIV Ab/Ag Today Z00.00 - Encounter for general adult medical examination without abnormal findings Lipid Panel Today Z00.00 - Encounter for general adult medical examination without abnormal findings Prostate Specific Antigen Today Z00.00 - Encounter for general adult medical examination without abnormal findings Uric Acid Today M25.473 - Effusion, unspecified ankle Referrals Sleep Medicine Referral G47.30 - Sleep apnea, unspecified Medications: New doxycycline hyclate 100 mg PO BID 14 caps 0RF
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
--- OUTSIDE RECORDS SUMMARY | 2025-09-03 12:14 | XMS_ITS | Clinical Summary ---
Author Organization [facility] Address [address] [address] Phone Care Team Providers Care Market Editor Name Role Phone Pcp, Unknown Primary Care Provider Unavailabl e Allergies No known active allergies Social History Tobacco Use Types Packs/Day Years Used Date Smoking Tobacco: Never Assessed Education Answer Date Recorded Are you interested in more education? Not on will e 07/30/2024 Are you concerned about learning? Not on file 07/30/2024 No 07/30/2024 No 07/30/2024 Digital Access Answer Date Recorded No 07/30/2024 No 07/30/2024 Reliable internet access at home? Not on file 07/30/2024 Device with a working camera? Not on file Sex and Gender Information Value Date Recorded Sex Assigned at Not on file Legal Sex Male 2:39 PM EDT Gender Identity Not on file Sexual Orientation Not on file Last Filed Vital Signs Vital Sign Reading Time Taken Comments Blood Pressure 150/96 07/30/2024 3:29 PM EDT Pulse 66 07/30/2024 3:29 PM EDT Temperature - - Respiratory Rate 16 07/30/2024 3:29 PM EDT Oxygen Saturation 98% 07/30/2024 3:29 PM EDT Inhaled Oxygen Concentration - - Weight - - Height - - Body Mass Index - - Plan of Treatment Health Maintenance Due Date Last Done Comments LIPID PANEL 1966 DEPRESSION SCREENING 1978 SMOKING Hx and SMOKELESS TOBACCO SCREENING 1979 HEPATITIS C SCREENING 1984 HIV ONE-TIME SCREENING (18-65 YEARS) 1984 COLOGUARD 2011 COLONOSCOPY 2011 COLORECTAL CANCER SCREENING 2011 FIT TEST 2011 FOBT 2011 SIGMOIDOSCOPY 2011 VIRTUAL COLONOSCOPY 2011 PNEUMOCOCCAL VACCINES (50+ years) (2 of 2 - PCV) 2016 09/11/2001 INFLUENZA VACCINE (#1) 2025 2, 09/15/2020, 08/19/2019, Additional history exists COVID-19 VACCINE (3 - season) 2025 03/30/2021, 03/02/2021 Adult Td,Tdap Booster 09/22/2027 09/22/2017 RSV VACCINE (1 - 1-dose 75+ series) 2041 HEPATITIS A VACCINES Aged Out 01/27/2020, 08/20/20 19 No longer eligible based on patient's age to complete this topic ZOSTER VACCINES Completed 09/15/2020, 01/31/2020 HIB VACCINES Aged Out No longer eligi ble based on patient's age to complete this topic MENINGOCOCCAL VACCINES (ACWY) Aged Out No longer eligible based on patient's age to complete this topic MENINGOCOCCAL VACCINES (B) Aged Out N o longer eligible based on patient's age to complete this topic Medical Devices Not on file [place] [address] [place] [address] [place] [address] [facility] Care Teams Market Editor Relationship Specialty Start Date End Date Pcp, Unknown PCP - General 07/30/24 Additional Source Comments The information contained in this document represents components of the legal health record. It is not the complete legal health record.[facility]
--- OUTSIDE RECORDS SUMMARY | 2025-09-03 12:14 | XMS_ITS | Clinical Summary ---
Author Organization [facility] Address [address] [place] [address] Care Team Providers Care Manager Channel Name Role Phone Unavailable Primary Care Provider Unavailabl e Source Comments PLEASE NOTE, if this patient is a minor, it may be UNLAWFUL to discuss sensitive information that is contained in these records (such as FAMILY PLANNING, MENTAL HEALTH or SUBSTANCE ABUSE) with the minor patient's parent or other person without the patient's specific authorization.[facility] Immunizations Immunization Administration Dates Next Due Moderna COVID-19 Vaccine, re d cap blue label, 12+ Primary Series 03/30/2021,03/02/2021 Social History Tobacco Use Types Packs/Day Years Used Date Smoking Tobacco: Never Assessed Social Connections Answer Date Recorded Social Connections and Isolation 0 03/02/2021 Financial Resource Strain Answer Date R ecorded Financial Resource Strain 0 2020 Stress Answer Date Recorded Stress 0 03/02/2021 Physical Activity Answer Date Recorded Physical Activity 0 03/02/2021 Food Insecurity Answer Date Recorded Food 0 03/02/2021 Transportation Needs Answer Date Record ed Transportation 0 03/02/2021 Housing Stability Answer Date Recorded Housing 0 03/02/2021 Safety and Environment Answer Date Gerardo rded Safety 0 03/02/2021 Utilities Answer Date Recorded Utilities 0 03/02/2021 Employment Answer Date Recorded Employment 0 03/02/2021 Sex and Gender Information Value Date Recorded Sex Assigned at Not on file Legal Sex Male 7:28 AM PDT Gender Identity Not on file Sexual Orientation Not on file Plan of Treatment Health Maintenance Due Date Last Done Comments Anxiety Screening 1966 Diabetes Screening 1966 Hepatitis C Screening 1966 Lipid Screening 1966 Tobacco Screening 1966 HIV Screening 1981 Hypertension Screening (#1) 1984 Imm-Hepatitis B (1 of 3 - 19 + 3-dose series) 1985 CT Colonography 2011 Colonoscopy 2011 Colorectal Cancer Screening 2011 FIT/gFOBT 2011 Fecal DNA 2011 Flexible Sigmoidoscopy 2011 Imm-Pneumococcal 50+ (2 of 2 - PCV) 2016 09/11/2001 Alcohol and Drug Screen 11/20/2024 Depression Annual Screen 11/20/2024 [id number] (3 - season) 2025 021, 03/02/2021 Imm-Influenza (#1) 2025 09/15/2020, 0 08/19/2019, 09/10/2018, Additional history exists Imm-DTaP/Tdap/Td (2 - Td or Tdap) 09/22/2027 017 Imm-Zoster, Recombinant Completed 09/15/2020, 01/30 Insurance [employer] ([employer]) Member Subscriber Plan / Payer (Ef fective 2021-Present) Name:Jose G Patel Relation to Subscriber:Self Name:Jose G Patel Payer ID:[id number] Type:Indemnity Address: [address] [place] [id number]
== END 2025-09-03 11:30 | disposition home or self-care (01) ==
LOC: HO.HMCH 10:21
PROVIDERS: PCP Internal Medicine; Visit Provider Internal Medicine
DX: Z00.00 Encounter for general adult medical examination without abnormal findings (principal); M25.472 Effusion, left ankle; G47.30 Sleep apnea, unspecified; B00.9 Herpesviral infection, unspecified; M19.012 Primary osteoarthritis, left shoulder; I10 Essential (primary) hypertension

== ENCOUNTER 2025-09-03 10:20 | Outpatient (REF) | payer BC, SELFPAY ==
[2025-09-03 11:58] LABS: MANUAL DIFF FLAG NO
[2025-09-03 12:11] LABS: Hematocrit 43.3 % (42.0-52.0); Hemoglobin 14.0 g/dl (14.0-18.0); Imm Gran Abs Auto 0.01 X10*3/uL (0.00-0.03); Imm Gran Pct Auto 0.2 % (0.0-0.4); Lymphocytes Absolute Auto 1.3 X10*3/uL (1.2-4.9); Mean Corpuscular HGB Conc 32.3 g/dl (31.0-36.0); Mean Corpuscular Hemoglobin 30.8 pg (27.0-33.0); Mean Corpuscular Volume 95.2 fL (80.0-98.0); NRBC Abs Auto 0.000 X10*3/uL (0.0-0.012); NRBC Pct Auto 0.0 /100WBC (0.0-0.2); Platelet Count 250 X10*3/uL (160-400); Red Blood Count 4.55 X10*6/uL (4.60-5.80); White Blood Count 6.2 X10*3/uL (4.8-10.8)
[2025-09-03 12:44] LABS: Alanine Aminotransferase 49 U/L (0-40); Albumin Level 4.6 g/dL (3.5-5.0); Anion Gap 13 (12-20); Aspartate Amino Transferase 33 U/L (5-37); Blood Urea Nitrogen 17 mg/dL (9-16); Calcium 9.7 mg/dL (8.4-10.2); Carbon Dioxide 27 mmol/L (22-29); Chloride 107 mmol/L (96-108); Cholesterol 243 mg/dL (<200); Estimated Glomerular Filt Rate > 60; HDL Cholesterol 68 mg/dL (>40); Potassium 4.9 mmol/L (3.3-5.1); Sodium 142 mmol/L (135-145); Total Protein 7.9 g/dL (6.5-8.0); Triglycerides 141 mg/dL (<150)
[2025-09-03 12:53] LABS: Total Hemoglobin (HGBA1C) 3656.4207 umol/L
[2025-09-03 12:58] LABS: Prostate Specific Antigen 1.80 ng/mL (<0.05-4.0)
[2025-09-03 13:04] LABS: Alkaline Phosphatase 128 U/L (39-117); Uric Acid 6.2 mg/dL (3.4-7.0)
[2025-09-04 04:58] LABS: HBS Num1 16.60 mIU/mL (0-7.99); HBc Num1 0.07 S/CO (0.00-0.79); HBsAGNum1 0.45 S/CO (0.00-0.99); HIV Num 1 0.05 S/CO (0.00-0.99); Hepatitis B Surface Antigen Negative (Negative); ~HepC Num1 0.06 S/CO (0.00-0.79); ~Hepatitis B Surface Antibody REACTIVE (Nonreactive); ~Hepatitis C Antibody Nonreactive (Nonreactive)
[2025-09-08 16:17] LABS: Vitamin D 25-OH, D2 <4 ng/mL; Vitamin D 25-OH, D3 26 ng/mL; Vitamin D 25-OH, Total 26 ng/mL (30-100)
== END 2025-09-03 10:21 | disposition home or self-care (01) ==
LOC: HO.LAB 10:20
PROVIDERS: PCP Internal Medicine; Visit Provider Internal Medicine
DX: Z00.00 Encounter for general adult medical examination without abnormal findings (principal); M25.473 Effusion, unspecified ankle; G47.33 Obstructive sleep apnea (adult) (pediatric); I10 Essential (primary) hypertension; B00.9 Herpesviral infection, unspecified; M19.011 Primary osteoarthritis, right shoulder; Z12.5 Encounter for screening for malignant neoplasm of prostate; Z13.1 Encounter for screening for diabetes mellitus; Z11.3 Encounter for screening for infections with a predominantly sexual mode of transmission; Z99.89 Dependence on other enabling machines and devices
CPT/HCPCS: 36415; 80053; 80061; 82306; 83036; 84153; 84443; 84550; 85025; 86704; 86706; 86803; 87340; 87389